=== PATIENT | female | born 1970 | race African-American/Black ===

== ENCOUNTER 2025-07-06 11:24 | Emergency (ER) | payer OTHER ==
[~2025-07-06] VITALS: Ht 172.7 cm; Wt 69.0 kg
[2025-07-06 11:30] VITALS: O2SAT 96
[2025-07-06] MEDS: ACETAMINOPHEN 500MG TABLET PO ONE (12:08)
[2025-07-06] MEDS ORDERED: TOPUD MT (13:38)
[2025-07-06 14:15] VITALS: BP 160/72; PULSE 89; RESP 15; TEMP 36.6; O2SAT 98
== END 2025-07-06 14:47 | disposition home or self-care (01) ==
LOC: ER 11:24
DX: S52.592A Other fractures of lower end of left radius, initial encounter for closed fracture (principal); S52.692A Other fracture of lower end of left ulna, initial encounter for closed fracture; I10 Essential (primary) hypertension; E11.9 Type 2 diabetes mellitus without complications; E78.00 Pure hypercholesterolemia, unspecified; Z99.2 Dependence on renal dialysis; W01.0XXA Fall on same level from slipping, tripping and stumbling without subsequent striking against object, initial encounter; Y93.89 Activity, other specified; Y92.89 Other specified places as the place of occurrence of the external cause; Y99.8 Other external cause status
CPT/HCPCS: 99284; 73030; 73070; 73100; 29125; A6449; A4565